=== PATIENT | male | born 1960 | race Caucasian/White ===

== ENCOUNTER → 2019-03-01 | Outpatient (CLI) | payer BC ==
[~2019-03-01] MED LIST: ACCU1TAB; ACET65TA; BABY81CH; BUPROPION; COLA100C2; CONRAY-43 43% 50ML VIAL (Q9960) As Ordered ONE; COUMADIN; CRES10TA32; LACT10SO8; LESC80TA; LIDOCAINE 1% MDV 20ML VIAL As Ordered ONE; METO-743; NORV5TAB; PERC5TAB8; PROT1TAB2; TRILIPIX; [UNRECOGNIZED DRUG - OTHER]; [UNRECOGNIZED DRUG - OTHER]; methylPREDNISolone SUSP 40 MG/ML (DEPO-medrol) VIAL (J1030) As Ordered ONE
--- NOTE | 2019-03-04 12:32 | REP ---
Reason For Exam/Comment: Primary osteoarthritis of the right shoulder Procedure: Right shoulder arthrocentesis The procedure was performed by HAMZAH Persaud, under the direct supervision of Dr. Tian. The benefits and risks including but not limited to pain, infection, bleeding and anaphylaxis were explained to the patient and informed consent was obtained both verbally and written. Directly prior to the start of the procedure, a formal timeout was completed in the procedure room. The right glenohumeral joint space was localized using fluoroscopic guidance. The skin was prepped and draped in the usual sterile fashion. 5 mL of 1% lidocaine 10 mg/ml was used as a local anesthetic. Using fluoroscopic guidance a 22-gauge spinal needle was inserted and advanced to the right glenohumeral joint space . 1 mL of Conray 43 was injected to verify needle placement. A 7 mL solution containing a 5 mL 1% lidocaine 10 mg/ml and 2 ml of Depo-Medrol 40 mg/ml was injected into the joint. The needle was removed and hemostasis was achieved. The patient tolerated the procedure well and there were no immediate complications. 0.4 minutes of fluoroscopy time was utilized for this procedure. Some fluoroscopic images are performed with last image hold technology. These images require no additional radiation. Reviewed by HAMZAH Traylor 03/01/2019 05:09 P Electronically Signed by Jean Tian MD 03/04/2019 12:24 P
== END ==
LOC: M RADPRO 11:58
PROVIDERS: ATTEND Physician Assistant
DX: M19.011 Primary osteoarthritis, right shoulder (principal)
CPT/HCPCS: 20610; 77002; J1030; Q9960